=== PATIENT | female | born 1965 | race Asian ===

== ENCOUNTER 2023-08-13 17:33 | Outpatient (RCR) | payer OTHER, SELFPAY | END 2023-08-13 23:59 | disposition home or self-care (01) | LOC: CRHB 17:33 | PROVIDERS: ATTENDING PHYSICIAN Internal Medicine Cardiovascular Disease; FAMILY PHYSICIAN Family Medicine | DX: Z95.4 Presence of other heart-valve replacement (principal) | CPT/HCPCS: 93797; 93798 ==

== ENCOUNTER 2023-09-10 17:43 | Outpatient (RCR) | payer OTHER, SELFPAY | END 2023-09-10 23:59 | disposition home or self-care (01) | LOC: CRHB 17:43 | PROVIDERS: ATTENDING PHYSICIAN Internal Medicine Cardiovascular Disease; FAMILY PHYSICIAN Family Medicine | DX: Z95.3 Presence of xenogenic heart valve (principal) | CPT/HCPCS: 93798 ==

== ENCOUNTER 2023-10-08 18:01 | Outpatient (RCR) | payer OTHER, SELFPAY | END 2023-10-08 23:59 | disposition home or self-care (01) | LOC: CRHB 18:01 | PROVIDERS: ATTENDING PHYSICIAN Internal Medicine Cardiovascular Disease; FAMILY PHYSICIAN Family Medicine | DX: Z95.1 Presence of aortocoronary bypass graft (principal) | CPT/HCPCS: 93798 ==

== ENCOUNTER 2023-10-17 17:30 | Outpatient (RCR) | payer OTHER, SELFPAY | END 2023-10-17 23:59 | disposition home or self-care (01) | LOC: CRHB 17:30 | PROVIDERS: ATTENDING PHYSICIAN Internal Medicine Cardiovascular Disease; FAMILY PHYSICIAN Family Medicine | DX: I35.0 Nonrheumatic aortic (valve) stenosis (principal); Z95.4 Presence of other heart-valve replacement | CPT/HCPCS: 93797; 93798 ==

== ENCOUNTER → 2023-12-26 14:52 | Outpatient (REF) | payer OTHER, SELFPAY | LOC: RCS 14:52 | PROVIDERS: ATTENDING PHYSICIAN Internal Medicine Cardiovascular Disease; FAMILY PHYSICIAN Family Medicine | DX: Z95.2 Presence of prosthetic heart valve (principal) | CPT/HCPCS: 93306 ==

== ENCOUNTER → 2024-01-12 17:01 | Outpatient (REF) | payer OTHER, SELFPAY | LOC: RAD 17:01 | PROVIDERS: ATTENDING PHYSICIAN Internal Medicine Critical Care Medicine; FAMILY PHYSICIAN Family Medicine | DX: R91.8 Other nonspecific abnormal finding of lung field (principal); Z85.3 Personal history of malignant neoplasm of breast | CPT/HCPCS: 71250 ==

== ENCOUNTER → 2024-04-19 17:44 | Outpatient (REF) | payer OTHER, SELFPAY | LOC: WDC 17:44 | PROVIDERS: ATTENDING PHYSICIAN Family Medicine; FAMILY PHYSICIAN Obstetrics & Gynecology | DX: Z12.31 Encounter for screening mammogram for malignant neoplasm of breast (principal) | CPT/HCPCS: 77063; 77067 ==

== ENCOUNTER 2025-04-18 06:08 | Day surgery (SDC) | payer OTHER, SELFPAY ==
[2025-04-15 13:52] LABS: Hematocrit 40.8 % (37.0-47.0); Hemoglobin 13.8 g/dL (12.0-16.0); Mean Corp Hgb Conc. 33.8 g/dL (33.0-37.0); Mean Corpuscular Volume 92.3 fL (81.0-99.0); Platelet Count 329 10^3/uL (130-400); Red Cell Dist. Width 13.1 % (11.5-14.5)
[2025-04-15 14:00] LABS: INR 1.02; PT 13.7 Sec (11.4-14.6)
[2025-04-15 14:01] LABS: APTT 33.6 Sec (23.4-35.0)
--- NOTE | 2025-04-15 14:22 | PTCARENOTE ---
Abnormal EKG reviewed by Dr. Limon, no further action requested.
[2025-04-15 14:27] LABS: Blood Urea Nitrogen 21 mg/dl (7-17); Calcium 9.9 mg/dl (8.4-10.2); Carbon Dioxide 29 mmol/L (22-30); Chloride 101 mmol/L (98-107); Glucose 102 mg/dl (70-99); Potassium 4.4 mmol/L (3.5-5.1); Sodium 137 mmol/L (135-145); eGFR > 60.00
[2025-04-18] VITALS (7 sets, daily range): BP systolic 107–119; BP diastolic 39–69; BMI 25.3; BMI 25.1; BMI 24.5
--- NOTE | 2025-04-18 17:40 | W.PN.UPDATE ---
Update Note
Progress Note Update
Patient developed right-sided small PTX post-robotic bronchoscopy. I immediately saw the pt, and she denies SOB at rest, although says that when she walked to the bathroom she felt discomfort on the left-side of her chest. Pt placed onto NRB @
100% - repeat CXR ordered, and completed ~4 hours later showing stable R-sided PTX without enlargement. I saw the patient once again and explained that the risk of going home is low but not zero, and that she can only go home if she feels
comfortable and if she becomes symptomatic then she needs to return to the ER immediately. I reviewed the red flag symptoms to watch out for. I had discussed this same risk of going home with risk for PTRX enlargement and hospital admission to the
earlier. Pt feels comfortable going home - I will arrange for outpatient CXR and we will check on her tomorrow (04/19/2025) to assess her symptoms.
== END 2025-04-18 18:37 | disposition home or self-care (01) ==
LOC: GI 06:08
PROVIDERS: ATTENDING PHYSICIAN Internal Medicine Critical Care Medicine; FAMILY PHYSICIAN Family Medicine
DX: R91.1 Solitary pulmonary nodule (principal); R93.89 Abnormal findings on diagnostic imaging of other specified body structures; D14.31 Benign neoplasm of right bronchus and lung
CPT/HCPCS: 31629; 31623; 31624; 31628; 31627; 31654; 36415; 71045; 76000; 80048; 85027; 85610; 85730; 87015; 87070; 87102; 87116; 87205; 88112; 88173; 88305; 88333; 88341; 88342; 88360; 93005; 94640; C1887

== ENCOUNTER → 2025-04-19 13:09 | Outpatient (REF) | payer OTHER, SELFPAY | LOC: RAD 13:09 | PROVIDERS: ATTENDING PHYSICIAN Internal Medicine Critical Care Medicine; FAMILY PHYSICIAN Family Medicine | DX: J93.9 Pneumothorax, unspecified (principal) | CPT/HCPCS: 71046 ==

== ENCOUNTER → 2025-04-20 17:42 | Outpatient (REF) | payer OTHER, SELFPAY | LOC: WDC 17:42 | PROVIDERS: ATTENDING PHYSICIAN Obstetrics & Gynecology; FAMILY PHYSICIAN Family Medicine | DX: Z12.31 Encounter for screening mammogram for malignant neoplasm of breast (principal) | CPT/HCPCS: 77063; 77067 ==

== ENCOUNTER → 2025-04-22 08:07 | Outpatient (REF) | payer OTHER, SELFPAY | LOC: REG 08:07 | PROVIDERS: ATTENDING PHYSICIAN Internal Medicine Critical Care Medicine; FAMILY PHYSICIAN Family Medicine | DX: J93.9 Pneumothorax, unspecified (principal) | CPT/HCPCS: 71046 ==

== ENCOUNTER → 2025-04-26 16:49 | Outpatient (REF) | payer OTHER, SELFPAY | LOC: RAD 16:49 | PROVIDERS: ATTENDING PHYSICIAN Internal Medicine Critical Care Medicine; FAMILY PHYSICIAN Family Medicine | DX: J93.9 Pneumothorax, unspecified (principal) | CPT/HCPCS: 71046 ==

== ENCOUNTER → 2025-05-02 16:47 | Outpatient (REF) | payer OTHER, SELFPAY | LOC: RAD 16:47 | PROVIDERS: ATTENDING PHYSICIAN Internal Medicine Critical Care Medicine | DX: J93.9 Pneumothorax, unspecified (principal) | CPT/HCPCS: 71046 ==

== ENCOUNTER → 2025-05-06 10:22 | Outpatient (REF) | payer OTHER, SELFPAY | LOC: PET 10:22 | PROVIDERS: ATTENDING PHYSICIAN Internal Medicine Critical Care Medicine | DX: R91.1 Solitary pulmonary nodule (principal); R91.8 Other nonspecific abnormal finding of lung field | CPT/HCPCS: 78815; A9552 ==

== ENCOUNTER → 2025-05-16 07:09 | Outpatient (REF) | payer OTHER, SELFPAY ==
[2025-05-16] VITALS (9 sets, daily range): BP systolic 52–122; BP diastolic 65–92
== END ==
LOC: RADI 07:09
PROVIDERS: ATTENDING PHYSICIAN Internal Medicine Critical Care Medicine; FAMILY PHYSICIAN Family Medicine
DX: R91.1 Solitary pulmonary nodule (principal); Z53.8 Procedure and treatment not carried out for other reasons
CPT/HCPCS: 32408; 99152; 99153

== ENCOUNTER 2025-05-31 07:53 | Inpatient (IN) | payer OTHER, SELFPAY ==
[2025-05-26 08:33] VITALS: BMI 25.5
[2025-05-26 09:23] LABS: Hematocrit 39.8 % (37.0-47.0); Hemoglobin 13.5 g/dL (12.0-16.0); Mean Corp Hgb Conc. 33.9 g/dL (33.0-37.0); Mean Corpuscular Volume 92.3 fL (81.0-99.0); Nucleated Red Blood Cells % 0 %; Platelet Count 304 10^3/uL (130-400); Red Cell Dist. Width 13.2 % (11.5-14.5)
[2025-05-26 09:37] LABS: Urine Character Clear (Clear)
[2025-05-26 09:47] LABS: INR 0.95; PT 13.1 Sec (11.4-14.6)
--- NOTE | 2025-05-26 10:06 | CM ---
Met with Mrs. Bishop in [facility]. She states prior to admission she resides with her spouse in a one story home with one step. She states prior to admission she was independent with ambulation and adls. She states she does not have any DME in the
home. She states she a prescription plan and uses [facility]. She states her spouse will be home to assist in his care if needed. The discharge plan is to return home with her spouse and the Transitional Care Nurse when medically stable.
We reviewed pre-op and post-op routines. We reviewed the shower instructions. She has the soap, written instructions and the Thoracic (Lung) Surgery Educational Booklet. We reviewed restrictions including driving and lifting restrictions. We
also discussed a home visit by the Transitional Care Nurse. She is agreeable to a home visit. The plan is for Robotic Assisted RML Wedge Resection on Saturday, May 31, 2025.
[2025-05-26 10:11] LABS: Glycohemoglobin (HgbA1c) 6.0 % (4.0-5.9)
[2025-05-26 10:43] LABS: ALT (SGPT) 42 U/L (0-35); AST (SGOT) 38 U/L (14-36); Albumin 4.4 g/dl (3.5-5.0); Alkaline Phosphatase 72 U/L (38-126); Blood Urea Nitrogen 14 mg/dl (7-17); Calcium 9.3 mg/dl (8.4-10.2); Carbon Dioxide 27 mmol/L (22-30); Chloride 104 mmol/L (98-107); Estimated Creatinine Clearance 71 ml/min; Glucose 90 mg/dl (70-99); Potassium 4.3 mmol/L (3.5-5.1); Sodium 135 mmol/L (135-145); Total Protein 7.7 g/dl (6.3-8.2); eGFR > 60.00
[2025-05-26 10:58] LABS: Urine Squamous Cell >30 /LPF (Few)
[2025-05-26 11:01] LABS: Urine Red Blood Cell 0-2 /HPF (0-2)
[2025-05-26 11:03] LABS: Urine White Cell 30-40 /HPF (0-5)
[2025-05-31] VITALS (10 sets, daily range): BP systolic 100–122; BP diastolic 63–86; BMI 24.8
[2025-05-31 12:53] LABS: Urine Character Clear (Clear)
[2025-05-31 13:04] LABS: Urine Red Blood Cell 0-2 /HPF (0-2); Urine Squamous Cell 0-2 /LPF (Few); Urine White Cell 0-2 /HPF (0-5)
[2025-05-31] MEDS: ANCEF IV (13:10)
--- NOTE | 2025-05-31 14:14 | CM ---
Reviewed chart. Mrs. Bishop is in the operating room today. Prior to admission she resides with her spouse in a one story home with one step. Prior to admission she was independent with ambulation and adls. She does not have any DME in the
home. She has a prescription plan and uses [facility]. Her spouse will be home to assist in his care if needed. The discharge plan is to return home with her spouse and the Transitional Care Nurse when medically stable.
--- NOTE | 2025-05-31 15:24 | W.PN.CT.SURG ---
CT Surgery Operative Note
-
THORACIC SURGERY OPERATIVE REPORT
Preoperative Diagnosis: Pulmonary nodule of the RML concerning for malignancy
Postoperative Diagnosis: Same
Procedure(s) Performed:
1. Robotic assisted thoracic surgery
2. Right middle lobectomy
3. Limited lymph node dissection
4. Intercostal nerve block interspaces 4, 5, 6, 7
5. Modifier 22 for adhesiolysis due to previous cardiothoracic surgery
Date of Surgery: 05/31/25
Comorbidities:
1. Previous history of aortic valve stenosis, status post SAVR
2. Anxiety/depression
3. Pneumothorax
4. Hyperlipidemia
5. Pulmonary nodule concerning for malignancy
6. History of breast cancer status postmastectomy and radiation
Attending Surgeon: Tacos Trammell MD, MS
Assistants: Lia Rosado PA-C (present and necessary to nurse first assist, exchanging robotic instruments, retraction, suction, exposure, suture management, and wound closure under my direction), Joss Morrison MD (Did adhesiolysis robotically), Malu
MD Martin (performed the intercostal nerve block, portion of the pulmonary resection, robotic arm management, closure)
Anesthesiology: Floyd Limon MD and Amarilis Mitchell CRNA
Scrub and Circulating RNs: Manasa Ferrer, RN, Bjorn Chavez, RN, Esther Goodman, RN
Anesthesia: Dual Lumen GETA
EBL: 200 cc
Products: None
Indication(s) for Procedures: This is a 59-year-old female who presented with a growing nodule that had FDG avidity on PET CT scan concerning for malignancy. Given the location of the nodule it was difficult to access for biopsy and she was
referred for consideration of a wedge versus lobectomy.
Findings: There is some intraoperative adhesions between the right middle lobe towards the anterior chest wall as well as the right upper lobe towards the anterior lateral chest wall. Of note her tissue was relatively friable and gentle
manipulation resulted in some bleeding and oozing. The lesions were taken down and the right middle lobe nodule was identified. Given the size of the right middle lobe IntraOp decision was essentially to make a lobectomy and sent that off for
frozen section. Frozen section returned as carcinoma favoring primary lung however this remains indeterminate. She had a paucity of lymph nodes anything that we could see was biopsied and taken for permanent pathology. At the inclusion of the
case there was no significant air leak.
Specimen(s):
Station 9, x 2 nodes
Station 7, x 1 nodes
Right middle lobe lobe
Additional margin of scar tissue/adhesions to the chest wall from that nodule
Description of Procedure: The patient was taken to the operating room. Induction via general anesthesia with endotracheal intubation was performed and peripheral venous access and arterial monitoring were inserted. Their identity and procedure to be
performed were verified and they were positioned with the right side up on the operating table. The patient was then prepped and draped in a sterile fashion. A preoperative time-out was performed with all members of the team present. A Veress
needle was used to insufflate the chest after isolating the lung. An 8 mm port was placed in the midaxillary line at approximately the eighth intercostal space and confirmed to be intrathoracic without significant pulmonary injury. The chest was
surveyed for any evidence of metastatic disease. Patient tolerate insufflation without complication. 1 additional 12 mm trocars were placed on the medial side under camera guidance, a second 8 mm trocar towards the posterior axillary line and a
third 8 mm trocar was placed along the back. A 12 mm behavioral health assistant port was placed in the 11th intercostal space above the insertion of the diaphragm. An intercostal nerve block was performed at intercostal spaces 4 through 7.
The thoracic cavity was inspected for evidence of metastatic disease. None was observed. Given the dense adhesions of the right upper and right middle lobes to the chest wall, this was taken with the spatula cautery. Of note the adhesions were
really vascular so care was taken to perform electrocautery of the lung side as well as chest wall slide. The right middle lobe nodule was identified and given the size of the right middle lobe, IntraOp incision was to perform essentially a full
right middle lobectomy. This was done with 2 fires of green load staplers. 1 specimen was placed into a bag and extracted from the chest cavity was sent for frozen section with pathology. While this was occurring, chest port sites were checked
for hemostasis and hemostasis was obtained with electrocautery. Once the pathology returned as carcinoma we started with mobilization of the inferior pulmonary ligament. We worked our way clockwise dissecting out the hilum and harvest any lymph
nodes identified. The site of adhesion of the right middle lobe nodule to the anterior chest wall was also taken as an additional margin. CoSeal was used to reinforce the staple lines and raw surfaces. After confirming hemostasis, the lung was
fully inflated and all ports were removed. Incisions were closed in 3 layers including the fascia, dermal, and epidermis. Additional local anesthesia was injected into all incision sites. The skin wound was cleansed and sealed with Dermabond glue.
All instrument, sponge, and needle counts were confirmed to be correct x 2 at the end of the operation. The patient was transferred to the cardiac intensive care unit extubated in critical but stable condition.
I, Dr. Tacos Trammell, was present, scrubbed for, and performed all critical elements of this procedure.
Tacos Trammell MD, MS
Cardiothoracic Surgeon
[facility]
This operative dictation was created using the [employer] dictation system. Please excuse any grammatical, typographical, or 'sound alike' errors
[2025-05-31] MEDS: DILAUDID 0.25 MG IV (16:33)
[2025-05-31] MEDS: NEURONTIN PO (16:41)
[2025-05-31] MEDS: TYLENOL PO (16:41)
--- NOTE | 2025-05-31 17:18 | PTCARENOTE ---
Received Pt back from PACU team. AAO x 3, drowsy but appropriate. C./o Rt anterior chest /shoulder pain. SR on monitor 60's. Lt radial A line transducing. Lines leveled, recalibrated and flushed. 2 L NC 100%. RT posterior chest tube to water
seal. No crepitus or air leak noted. Abdomen wnl, denies nausea. Due to void. Pulses palpable. Plan discussed.
--- NOTE | 2025-05-31 17:44 | CON.PUL ---
Consultation
Consultation Request
Date/Time Consultation Requested: 05/31/2025
Date/Time Consultation Performed: 06/01/2025
Medical History
-
Chief Complaint: Lung nodule
History of Present Illness:
Patient is a very pleasant 59-year-old female with known history of breast cancer status postmastectomy as well as aortic valve replacement who was noted to incidentally have a lung nodule in the right middle lobe. Serial growth was noted and
patient subsequently had a PET scan which was positive with FDG uptake. Iron robotic bronchoscopy was attempted but diagnosis was not established. Subsequently an IR guided biopsy was considered but could not be done due to technical location of
the nodule. Patient subsequently was referred to CT surgery service. Patient on 05/31 had a right middle lobectomy along with limited lymph node dissection. Postprocedure patient was transferred to CVICU. Pulmonary consultation was requested for
further input.
Past medical history. Right-sided breast cancer s/p radiation and surgery. Aortic stenosis s/p aortic valve replacement, hyperlipidemia, IBS, anxiety/depression, history of pneumothorax status post AVR in 06/2023. History of eczema.
Surgery. Right breast mastectomy, tubal ligation, s/p AVR which required mini sternotomy.
Family history. No known history of lung cancer.
Social history. Former smoker, [id number] smoking history, quit in 2009.
Allergies / Home Medications
Allergies
Allergy/AdvReac Type Severity Reaction Status Date / Time
dog dander Allergy Hives Verified 05/25/25 12:13
egg Allergy Unknown Verified 05/25/25 12:13
grass pollen Allergy Itching Verified 05/25/25 12:13
Home Medications
�Medication �Instructions �Recorded �Confirmed �Last Taken �Type
lactobacillus comb no.10 20 1 cap PO DAILY Gastrointestinal 10/27/19 05/31/25 05/24/25 History
billion cell capsule (Probiotic) Issue
sertraline 100 mg tablet (Zoloft) 100 mg PO HS Mental Health/Anxiety 05/05/23 05/31/25 05/30/25 History
clobetasol 0.05 % topical cream 1 applic topical BID PRN eczema 05/19/23 05/31/25 05/30/25 History
cholecalciferol (vitamin D3) 125 125 mcg PO HERNÁNDEZ Supplement 04/14/25 05/31/25 05/22/25 History
mcg (5,000 unit) tablet (Vitamin
D3)
rosuvastatin 20 mg tablet 20 mg PO DAILY High Cholesterol 04/14/25 05/31/25 05/30/25 History
Cbd 1 dose PO PRN PRN Anxiety 05/25/25 05/31/25 01/11/25 History
metoprolol succinate 25 mg 25 mg PO DAILY Blood Pressure 05/31/25 05/31/25 05/30/25 History
tablet,extended release 24 hr
Review of Systems
-
Hematologic/Lymphatic: Other (All 14 systems reviewed and negative except as stated above in the history of present illness.)
Vitals / Labs / Diagnostic Testing
Vital Signs
Temp Pulse Resp BP Pulse Ox
97.6 F 66 16 104/63 100
05/31/25 17:03 05/31/25 17:00 05/31/25 17:03 05/31/25 16:30 05/31/25 17:11
Lab Data
05/26/25 08:44
05/26/25 08:44
Diagnostic Testing:
Physical Exam
-
HEENT: Normocephalic
Cardiovascular: S1/S2
Respiratory: Clear
GI: Soft and Non Distended
Neurology: Awake, Alert and Oriented
Skin: Warm
General: Comfortable
Assessment
-
59-year-old female with positive right middle lobe, s/p right middle lobectomy and limited lymph node dissection, POD # 1
#1. RML nodule.
- Patient noted to have PET positive right middle lobe nodule. Ion bronchoscopy attempted but nondiagnostic. CT guided biopsy could not be performed due to technical challenges.
- S/p RATS (robotic assisted thoracic surgery), right middle lobe lobectomy, limited lymph node dissection. Await final pathology
- Chest tube in place, follow-up chest x-ray without any pneumothorax. No airleak noted
- Chest tube clamped 06/01. Tolerating well.
#2. RUL Ground glass opacity
- No significant PET update noted
- Will continue ongoing surveillance with serial imaging with Dr. Malhotra at [facility] pulmonary clinic
#3. H/o Smoking
- Patient has 26-[id number] smoking history, quit in 2009
- No symptoms suggestive of COPD or emphysema.
Other medical diagnoses:
- History of aortic valve stenosis, s/p aortic valve replacement
- Anxiety/depression
- Hyperlipidemia
- History of breast cancer s/p mastectomy and radiation
Total time spent on this consultation/encounter __58__ minutes which includes review of history, physical exam, medications, laboratory data, personal review of imaging, extensive review of outpatient records, discussion with care team and
respiratory therapy.
Data:
CXR 05/2025: Decreased volume of the right hemithorax and right chest tube, stable.
No pneumothorax.
ION bronchoscopy and biopsy 04/2025: Non-diagnostic biopsy
PET-CT 04/2025: 1.3 cm solid pulmonary nodule in the right middle lobe is hypermetabolic and shows increased uptake on delayed imaging, considered suspicious for lung cancer.
The 1.1 cm groundglass pulmonary nodule in the right upper lobe is not significantly hypermetabolic.
ECHO 12/2023: Normal biventricular size and systolic function without regional wall motion
abnormality. Well seated #21 Weinstein Inspiris Resilia aortic valve replacement. The
peak/mean gradients across the valve are 34/17 mmHg.
Compared to previous echo, the aortic valve has been replaced.
LHC & RHC 04/2023: 1. Right dominant circulation with no coronary artery disease.
2. Normal filling pressures (PCWP = 8 mmHg at 69.0 kg).
3. Severe to critical aortic valve stenosis on echocardiogram.
[2025-05-31] MEDS: ANCEF 10 IV (17:45)
[2025-05-31] MEDS: DILAUDID 0.5 MG IV (18:14)
[2025-05-31] MEDS: SENOKOT 8.6 MG PO (20:05)
[2025-05-31] MEDS: LOPRESSOR 12.5 MG PO (20:05)
[2025-05-31] MEDS: ANCEF 5 IV (20:17)
[2025-05-31] MEDS: ROXICODONE 5 MG PO (20:17)
--- NOTE | 2025-05-31 20:29 | PTCARENOTE ---
Assumed care of pt at 1900. Pt in bed talking with family at bedside during walking rounds. Vitals stable. Assisted pt into bathroom at aprox 2019 and was able to void with a slight burning sensation post pack catheter removal. 2L of O2 removed
and remains 97 on RA. SR on monitor. Chest tube to water seal, dressing CDI. Pt given oxycodone for pain of 6/10 to right anterior incision. Instructed to ring for assistance needed.
[2025-05-31] MEDS: NEURONTIN 100 MG PO (22:16)
[2025-05-31] MEDS: TYLENOL 1000 MG PO (22:16)
[2025-05-31] MEDS: ZOLOFT 100 MG PO (22:16)
--- NOTE | 2025-05-31 23:00 | PTCARENOTE ---
Received pt from previous RN. Systems reviewed, see flowsheets. Pt lying comfortably in bed with no new complaints at this time. Chest tube to water seal, WNL. No crepitus or air leak. Volume at 90mL sofy. Dressing CDI. SB in the 50s on heart
monitor. SaO2 96% on RA. L hand PIV and LAC PIV capped. Will continue to monitor.
[2025-06-01] VITALS (8 sets, daily range): BP systolic 92–119; BP diastolic 56–73; BMI 25.4
[2025-06-01] MEDS: DILAUDID 0.25 MG IV (00:05)
--- NOTE | 2025-06-01 02:58 | DOWNTIME ---
There was a [employer] Client Leadership Development Manager Downtime on 06/01/2025 from 0100 to 06/01/2025 at 0255. Downtime documentation of patient's care, including medication administrations, has been reconciled in the electronic record per guidelines. Refer to the
patient's paper chart under the miscellaneous tab to see printed paper medication records and downtime forms.
[2025-06-01] MEDS: ANCEF 5 IV ×2 (03:47→11:09)
[2025-06-01 03:48] LABS: Hematocrit 36.7 % (37.0-47.0); Hemoglobin 12.4 g/dL (12.0-16.0); Mean Corp Hgb Conc. 33.8 g/dL (33.0-37.0); Mean Corpuscular Volume 92.2 fL (81.0-99.0); Platelet Count 270 10^3/uL (130-400); Red Cell Dist. Width 13.2 % (11.5-14.5)
[2025-06-01] MEDS: ROXICODONE 5 MG PO (03:54)
[2025-06-01 04:14] LABS: Blood Urea Nitrogen 10 mg/dl (7-17); Calcium 8.9 mg/dl (8.4-10.2); Carbon Dioxide 27 mmol/L (22-30); Chloride 103 mmol/L (98-107); Estimated Creatinine Clearance 82 ml/min; Glucose 130 mg/dl (70-99); Magnesium 2.2 mg/dl (1.6-2.3); Potassium 4.8 mmol/L (3.5-5.1); Sodium 133 mmol/L (135-145); eGFR > 60.00
--- NOTE | 2025-06-01 05:46 | W.PN.CT ---
Today's Communication / Plan
-
-pod #1
-no issues overnight
-R CT put out 86/150, on water seal overnight. No air leak with breathing or cough.
-CXR is stable, no ptx.
-per AT, clamped CT at 6 am. Ordered CXR for 10 am
Assessment / Plan
-
- Pulmonary nodule of the RML concerning for malignancy- s/p Robotic assisted thoracic surgery; Right middle lobectomy; Limited lymph node dissection by Dr. Trammell on 05/31/25, pod #1
- Frozen section positive for malignancy, likely primary lung. Full pathology is pending
- Previous history of aortic valve stenosis, status post SAVR (Inspiris) in [address] Morrison
- Anxiety/depression
- Pneumothorax
- Hyperlipidemia
- Pulmonary nodule concerning for malignancy
- History of breast cancer, status postmastectomy and radiation
Discussed patient care with: Nursing and Care Team
Subjective
-
Date of Service: June 01, 2025
Objective Data
-
Lab Results
06/01/25 03:37
06/01/25 03:37
PT 13.1 Sec (11.4-14.6) 05/26/25 08:44
INR 0.95 05/26/25 08:44
Vital Signs
Vital Signs
Temp Pulse Resp BP Pulse Ox
97.7 F 56 10 119/69 99
06/01/25 03:58 06/01/25 04:00 06/01/25 04:00 06/01/25 04:00 06/01/25 04:00
CT Intake/Output/Weight
05/31/25 05/31/25 06/01/25
06:59 18:59 06:59
Intake Total 610 / 1210 600 / 1210
Output Total 65 / 151 86 / 151
Balance 545 / 1059 514 / 1059
SaO2: 99
Physical Exam
-
General: Awake and AOx3
Cardiovascular: Regular rate & rhythm, Murmur (2/6 systolic) and No Rub
Respiratory: Clear and Decreased Breath Sounds
Incision: Clean, Dry and Dressing Intact
Extremities: No Edema
Abdomen: soft, nontender, nondistended
Data Reviewed
-
Lab Results: Results Reviewed
Medications: Active Meds Reviewed
Chest X-Ray: Report Reviewed and Image Reviewed
ECG: Report Reviewed and Image Reviewed
[2025-06-01] MEDS: TYLENOL 1000 MG PO ×2 (05:53→13:52)
--- NOTE | 2025-06-01 07:30 | PTCARENOTE ---
Assumed care of pt from night RN. Ambrose3. SB on tele, HRs 50s. VSS. CT remains clamped at this time. Repeat CXR ordered for 1000. No crepitus noted. Assessment documented. Plan for CT removal if CXR remains unchanged.
[2025-06-01] MEDS: CRESTOR 20 MG PO (08:38)
[2025-06-01] MEDS: SENOKOT 8.6 MG PO (08:38)
[2025-06-01] MEDS: NEURONTIN 100 MG PO ×2 (08:38→15:48)
[2025-06-01] MEDS: LOPRESSOR 12.5 MG PO (08:38)
[2025-06-01] MEDS: LIDOCAINE 4% PATCH 1 PATCH TOPICAL (08:39)
--- NOTE | 2025-06-01 10:44 | PTCARENOTE ---
CXR unchanged. CT removed at bedside buy CT surgery night shift supervisor. Pt tolerated. Assessment otherwise unchanged. Plan for d/c home later today.
[2025-06-01] MEDS: TORADOL 15 MG IV (12:22)
--- NOTE | 2025-06-01 15:08 | CM ---
Chart reviewed. Patient is independent of ADLS, lives with her in a 1 STH, 1 WILDA, 0 DME. Plan is for the patient to return home with CT Transitional RN. CM to follow
--- NOTE | 2025-06-01 15:32 | W.DCSUMMARY ---
Discharge Summary
Discharge Data
Date of Admission: 05/31/25
Date of Discharge: 06/01/25
Total time spent discharging patient (in min): 40
-
Pending Results: No
Hospital Course
Primary care physician:
Dr. Preciado
Outpatient stain wiper:
Dr. Malhotra
Inpatient consultants:
n/a
Procedures:
1. Robotic assisted thoracic surgery, Right middle lobectomy, Limited lymph node dissection
Primary Diagnosis:
1. Pulmonary nodule of the RML concerning for malignancy
Secondary Diagnoses:
1. Previous history of aortic valve stenosis, status post SAVR
2. Anxiety/depression
3. Pneumothorax
4. Hyperlipidemia
5. Pulmonary nodule concerning for malignancy
6. History of breast cancer status postmastectomy and radiation
HPI: 59-year-old female who presented with a growing nodule that had FDG avidity on PET CT scan concerning for malignancy. Therefpre, she presented on 05/31 for a lobectomy and lymph node dissection with Dr. Trammell.
Hospital course: Patient was electively admitted on 05/31 for a RATS RML lobectomy and lymph node dissection. Post procedure, patient was extubated and sent to PACU. CXR was preformed which did not show a pneumothorax and chest tube placed on h20
seal. On 06/01 POD #1, patient continued to do well. Morning CXR did not show a pneumothorax so chest tube was clamped. In the afternoon, CXR was still stable and chest tube was removed without issue and a stitch was tied down after removal.
Patient's blood pressure initially was in the 90s but patient was asymptomatic and she ambulated well. She was deemed stable for discharge with a short course of lasix and will be seen in the office on 06/13 with a repeat CXR.
Home medication changes:
see below
Discharge Plan
-
Patient Disposition: Home (Routine Discharge)
Discharge Diagnosis/Procedures: Robotic assisted thoracic surgery
Right middle lobectomy
Limited lymph node dissection
Condition: Good
Diet: Regular
Activity: No strenuous activity
Driving Restrictions: No driving for 2 weeks
Bathing Restrictions: OK to Shower
Others Tests: CXR on 06/13 PRIOR to visit with Dr. Trammell
Other Services: Cardiac Rehab
Wound Care: keep dressing on for 24 hours
Specialty Instructions: Weigh Daily- Call MD for wt gain/loss 3 lbs overnight/5 lbs in 1 week
Referrals:
CT Transitional Care Nurse [Outside]
Referral Note: The Cardiothoracic Transitional Care Nurse will call you to set up a visit in 1-2 days.
Segundo Malhotra MD [Active, Pulmonary Medicine] - in six weeks
Hetal Preciado MD [Family Provider, Family Practice]
Tacos Trammell MD [Active, Cardiac Surgery] - 06/13/25 2:15 pm
Prescriptions:
New
cyclobenzaprine 10 mg Tablet
5 mg PO Q8HPRN PRN (Reason: muscle spasm) Qty: 30 0RF
acetaminophen 325 mg Tablet
650 mg PO Q4HPRN PRN (Reason: mild pain,headache,temp >101F ) Qty: 0 0RF
gabapentin 100 mg Capsule
100 mg PO TID Qty: 90 0RF
oxycodone 5 mg Tablet
2.5 mg PO Q6HPRN PRN (Reason: mild pain) Qty: 20 0RF
furosemide [Lasix] 20 mg tablet
20 mg PO DAILY Qty: 7 0RF
Rx Instructions:
Take daily for 7 days, then stop
potassium chloride 10 mEq capsule, extended release
10 meq PO DAILY Qty: 7 0RF
Continued
Probiotic 1 EACH capsule
1 cap PO DAILY
sertraline [Zoloft] 100 mg Tablet
100 mg PO HS
clobetasol 0.05 % Cream
1 applic TOPICAL BID PRN (Reason: eczema)
cholecalciferol (vitamin D3) [Vitamin D3] 125 mcg (5,000 unit) Tablet
125 mcg PO HERNÁNDEZ
rosuvastatin 20 mg Tablet
20 mg PO DAILY
Cbd
1 dose PO PRN PRN (Reason: Anxiety)
metoprolol succinate 25 mg tablet extended release 24 hr
25 mg PO DAILY
Discharge Orders:
Discharge Patient (As Directed); Ordered 06/01/25
Ordered By: Crystal Haskins
Care Plan Goals
Care Plan Goals:
Problem: Readiness for enhanced knowledge related to diagnosis and treatment plan
Goal: Understand your diagnosis and treatment plan needs, including medications if applicable.
Instructions: Know your diagnosis, underlying causes and treatment plan options, including medications if applicable. Consult with your health care team to learn about your diagnosis and treatment plan, including medications if applicable.
Discharge Date and Time
Print Language: PARAGUAYAN
== END 2025-06-01 16:38 | disposition home or self-care (01) | DRG 165 ==
LOC: CVICU 07:53
PROVIDERS: ADMITTING PHYSICIAN Thoracic Surgery (Cardiothoracic Vascular Surgery); FAMILY PHYSICIAN Family Medicine; OTHER PHYSICIAN Internal Medicine
PROC: 0BNC4ZZ Release Right Upper Lung Lobe, Percutaneous Endoscopic Approach (ICD-10-PCS; 2025-05-31)
PROC: 07B74ZZ Excision of Thorax Lymphatic, Percutaneous Endoscopic Approach (ICD-10-PCS; 2025-05-31)
PROC: 0BTD4ZZ Resection of Right Middle Lung Lobe, Percutaneous Endoscopic Approach (ICD-10-PCS; 2025-05-31)
PROC: 0BND4ZZ Release Right Middle Lung Lobe, Percutaneous Endoscopic Approach (ICD-10-PCS; 2025-05-31)
DX: C34.91 Malignant neoplasm of unspecified part of right bronchus or lung (principal); F32.A Depression, unspecified; F41.9 Anxiety disorder, unspecified; E78.00 Pure hypercholesterolemia, unspecified; K66.0 Peritoneal adhesions (postprocedural) (postinfection); L30.9 Dermatitis, unspecified; Z85.3 Personal history of malignant neoplasm of breast; Z90.11 Acquired absence of right breast and nipple; Z92.3 Personal history of irradiation; Z86.79 Personal history of other diseases of the circulatory system; Z95.2 Presence of prosthetic heart valve; Z87.891 Personal history of nicotine dependence; Z91.0120 Allergy to eggs, unspecified
CPT/HCPCS: 36415; 71045; 80048; 80053; 81003; 81015; 81459; 82248; 83036; 83735; 85025; 85027; 85610; 86850; 86900; 86901; 87070; 87086; 88305; 88309; 88313; 88331; 88342; 93005; 94010

== ENCOUNTER 2025-06-06 15:03 | Observation (INO) | payer OTHER, SELFPAY ==
[2025-06-06] VITALS (10 sets, daily range): BP systolic 78–133; BP diastolic 60–87; BMI 26.3
[2025-06-06 12:21] LABS: Hematocrit 37.4 % (37.0-47.0); Hemoglobin 12.8 g/dL (12.0-16.0); Mean Corp Hgb Conc. 34.2 g/dL (33.0-37.0); Mean Corpuscular Volume 91.0 fL (81.0-99.0); Nucleated Red Blood Cells % 0 %; Platelet Count 362 10^3/uL (130-400); Red Cell Dist. Width 13.2 % (11.5-14.5)
[2025-06-06 12:38] LABS: COVID-19 Antigen Negative (Negative)
[2025-06-06 13:05] LABS: ALT (SGPT) 23 U/L (0-35); AST (SGOT) 20 U/L (14-36); Albumin 3.7 g/dl (3.5-5.0); Alkaline Phosphatase 68 U/L (38-126); Blood Urea Nitrogen 12 mg/dl (7-17); Calcium 9.0 mg/dl (8.4-10.2); Carbon Dioxide 29 mmol/L (22-30); Chloride 103 mmol/L (98-107); Glucose 99 mg/dl (70-99); Potassium 4.2 mmol/L (3.5-5.1); Sodium 136 mmol/L (135-145); Total Protein 7.0 g/dl (6.3-8.2); eGFR > 60.00
--- NOTE | 2025-06-06 13:10 | ED.GENMED ---
History of Present Illness
<Brenda Santos PA-C - Last Filed: 06/06/25 14:51>
General
Chief Complaint: Post Operative Problem(s)
Time Seen by Provider: 06/06/25 11:13
History of Present Illness
History of Present Illness:
see MDM
Phy Exam
<Brenda Santos PA-C - Last Filed: 06/06/25 14:51>
Physical Exam
Physical Exam:
see MDM
Course
<Brenda Santos PA-C - Last Filed: 06/06/25 14:51>
Orders/Labs/Results
Orders:
Orders
06/06/25 11:23
Electrocardiogram (*1) Urgent
Reason for Study: Shortness of Breath
EKG- Treatment ONCE
CR Chest - 2 Views Urgent
Comment:
Reason For Exam: RML resection 6 days ago, sob, cough
06/06/25 11:57
COVID-19 Antigen Urgent
Source: Nasal Swab
Complete Blood Count/With Diff Urgent
Comprehensive Metabolic Panel Urgent
Influenza A+B Rapid Molecular Urgent
JONA Source: Nasal Swab
Specimen Description:
06/06/25 12:42
CT Chest PE Study Urgent
Comment: breast ca; dr arreaga wants PE study
Reason For Exam: s/p RML resection, now sob, pain, opacity
06/06/25 14:02
Piperacillin/Tazo 3.375 Gram [Zosyn] 3.375 gram in 50 ml IV NOW
06/06/25 14:37
Consult Interventional Radiology [IRAD CONSULT] Urgent
Consulting Provider: Brodie Stone
Was physician already notified: Yes
Procedure being ordered, including laterality if applicable: R sided pigtail for pleurla effusion
Acknowledgement that appropriate orders are entered: Yes
06/06/25 14:39
Admit/Transfer Patient As Directed
Co-Sign Provider:
Level of Care: Observation services
Assign to:: IVU
Physician / Group: Trammell
Diagnosis: Pleural effusion
Reason for Hospitalization: pigtail placement
PRN Pain Medication Management As Directed
May give lesser potent ordered pain med per pt: Yes
preference::
Protocol:: Medication orders for pain may be administered in a
manner that supports deferring to patient preference
when the pt is:
- Requesting an ordered lesser potent pain medication.
Least to most potent pain medications are defined
as: acetaminophen < NSAID < tramadol < opioids
(morphine, oxycodone, hydromorphone).
- Requesting a lesser dose of the same medication IF
ORDERED.
- Requesting a less intrusive route of administration
if both routes are prescribed by the provider (PO <
IV).
06/06/25 14:42
Code Status As Directed
Resuscitation Status: Full Code
Abnormal Lab Results
06/06/25
11:57
WBC 13.6 H 10^3/uL
(4.8-10.8)
RBC 4.11 L 10^6/uL
(4.20-5.40)
MCH 31.1 H pg
(27.0-31.0)
Absolute Neuts (auto) 8.3 H 10^3/uL
(1.4-6.5)
Absolute Monos (auto) 1.9 H 10^3/uL
(0.1-0.6)
Absolute Eos (auto) 1.2 H 10^3/uL
(0-0.7)
Lymphocytes % 15.2 L %
(20.5-51.1)
Monocytes % 13.9 H %
(1.7-9.3)
Eosinophils % 8.7 H %
(0-6)
Creatinine 0.5 L mg/dL
(0.6-1.0)
06/06/25 11:57
06/06/25 11:57
Vital Signs
Initial and Last Documented VS:
Initial Vital Signs
Temp Pulse Resp BP Pulse Ox
36.8 C 84 18 121/78 96
06/06/25 10:25 06/06/25 10:25 06/06/25 10:25 06/06/25 10:25 06/06/25 10:25
Last Documented Vital Signs
Temp Pulse Resp BP Pulse Ox
36.8 C 67 20 99/74 97
06/06/25 10:25 06/06/25 12:15 06/06/25 12:15 06/06/25 12:15 06/06/25 13:12
<Marcelino Carmona MD - Last Filed: 06/06/25 14:41>
Orders/Labs/Results
Orders:
Orders
06/06/25 11:23
Electrocardiogram (*1) Urgent
Reason for Study: Shortness of Breath
EKG- Treatment ONCE
CR Chest - 2 Views Urgent
Comment:
Reason For Exam: RML resection 6 days ago, sob, cough
06/06/25 11:57
COVID-19 Antigen Urgent
Source: Nasal Swab
Complete Blood Count/With Diff Urgent
Comprehensive Metabolic Panel Urgent
Influenza A+B Rapid Molecular Urgent
JONA Source: Nasal Swab
Specimen Description:
06/06/25 12:42
CT Chest PE Study Urgent
Comment: breast ca; dr arreaga wants PE study
Reason For Exam: s/p RML resection, now sob, pain, opacity
06/06/25 14:02
Piperacillin/Tazo 3.375 Gram [Zosyn] 3.375 gram in 50 ml IV NOW
06/06/25 14:37
Consult Interventional Radiology [IRAD CONSULT] Urgent
Consulting Provider: Brodie Stone
Was physician already notified: Yes
Procedure being ordered, including laterality if applicable: R sided pigtail for pleurla effusion
Acknowledgement that appropriate orders are entered: Yes
06/06/25 14:39
Admit/Transfer Patient As Directed
Co-Sign Provider:
Level of Care: Observation services
Assign to:: IVU
Physician / Group: Trammell
Diagnosis: Pleural effusion
Reason for Hospitalization: pigtail placement
PRN Pain Medication Management As Directed
May give lesser potent ordered pain med per pt: Yes
preference::
Protocol:: Medication orders for pain may be administered in a
manner that supports deferring to patient preference
when the pt is:
- Requesting an ordered lesser potent pain medication.
Least to most potent pain medications are defined
as: acetaminophen < NSAID < tramadol < opioids
(morphine, oxycodone, hydromorphone).
- Requesting a lesser dose of the same medication IF
ORDERED.
- Requesting a less intrusive route of administration
if both routes are prescribed by the provider (PO <
IV).
06/06/25 14:42
Code Status As Directed
Resuscitation Status: Full Code
Abnormal Lab Results
06/06/25
11:57
WBC 13.6 H 10^3/uL
(4.8-10.8)
RBC 4.11 L 10^6/uL
(4.20-5.40)
MCH 31.1 H pg
(27.0-31.0)
Absolute Neuts (auto) 8.3 H 10^3/uL
(1.4-6.5)
Absolute Monos (auto) 1.9 H 10^3/uL
(0.1-0.6)
Absolute Eos (auto) 1.2 H 10^3/uL
(0-0.7)
Lymphocytes % 15.2 L %
(20.5-51.1)
Monocytes % 13.9 H %
(1.7-9.3)
Eosinophils % 8.7 H %
(0-6)
Creatinine 0.5 L mg/dL
(0.6-1.0)
06/06/25 11:57
06/06/25 11:57
Vital Signs
Initial and Last Documented VS:
Initial Vital Signs
Temp Pulse Resp BP Pulse Ox
36.8 C 84 18 121/78 96
06/06/25 10:25 06/06/25 10:25 06/06/25 10:25 06/06/25 10:25 06/06/25 10:25
Last Documented Vital Signs
Temp Pulse Resp BP Pulse Ox
36.8 C 67 20 99/74 97
06/06/25 10:25 06/06/25 12:15 06/06/25 12:15 06/06/25 12:15 06/06/25 13:12
[place]íalt;Brenda Santos PA-C - Last Filed: 06/06/25 14:51>
MDM/Problems Addressed
Differential Diagnosis Includes:
see MDM
MDM/Problems Addressed:
Note:
CHIEF COMPLAINT(S)
Shortness of breath following a recent lobectomy.
HISTORY OF PRESENT ILLNESS
The patient 59 y/o female, h/o previous R breast ca, htn, hld, AVR, lung mass recently underwent a lobectomy on 05/31 due to a small mass suspected to be lung cancer. She reports not feeling well post-surgery. Since the procedure, she has
experienced shortness of breath, which became more pronounced today. The patient denies fever but feels generally run down. She also reports that taking deep breaths is painful and finds it difficult to cough due to the pain. There has been no
coughing up of blood or other symptoms such as diarrhea, sore throat, or headaches. The patients past medical history is significant for lung cancer, and the lesion was described as exceptionally small. No pathology results are available yet, and
they are expected by tomorrow.
she feels like she has crackles in her lugns
she feels fatigued.
called dr trammell and was told to come to the ED
PAST MEDICAL AND SURGICAL HISTORY
- Lung cancer diagnosis with recent lobectomy.
- History of breast cancer, treated with lumpectomy and radiation approximately ten years ago.
- Heart valve replacement (aortic valve) about two years ago.
SOCIAL HISTORY
The patient has a history of smoking. Current smoking status is not explicitly detailed but inferred to be in the past.
REVIEW OF SYSTEMS
- Respiratory: Shortness of breath that has worsened since surgery.
- General: Feels run down, with no fever.
- Pain: Pain with deep breathing.
- Gastrointestinal: Denies diarrhea.
- Ear, Nose, and Tongue: Denies sore throat and headaches.
PHYSICAL EXAM
GENERAL: Alert , in no apparent distress
EYE: pupils equal and reactive
NECK: Supple
ENT: o/p clr, mmm.
CARDIAC: Regular rate and rhythm .
lungs: diminished, crackles R base; no acute respiratory distress, no wheezes/rales/rhonchi
coughs with speaking; spastic
ABDOMEN: Soft, without focal tenderness, no r/g, no cvat, normal bowel sounds
NEUROLOGICAL: Alert and oriented, no focal neuro deficits
SKIN: Warm and dry, skin intact.
MUSCULOSKELETAL: No edema, well perfused. neg my's sign
PSYCH: Normal and appropriate interaction.
- Nursing notes reviewed and vital signs reviewed.
PROBLEM LIST
Acute Problems:
- Post-surgical shortness of breath
- Pain with deep breathing
Chronic Problems:
- Lung cancer
- History of breast cancer
- Aortic valve replacement
PLAN
- Initiate an X-ray to assess current status post-lobectomy.
- Consider a further computed tomography scan for detailed imaging.
- Swab for influenza and COVID-19 testing.
- Obtain blood work for further evaluation.
- Offer pain medication through intravenous administration if needed.
DIFFERENTIAL DIAGNOSIS
The Differential Diagnosis includes, in no particular order and is not limited to:
1. Postoperative atelectasis
2. Pulmonary embolism
3. Pneumonia
4. Pleural effusion
5. Infection at surgical site
6. Anemia
7. Heart failure
8. COPD exacerbation
9. Lung abscess
10. Acute respiratory distress syndrome (ARDS)
CARE-UPDATE
06/06/25 - 12:23
Patient x-ray reveals presence of fluid on the right side, possibly indicative of infection or blood. No evidence of a punctured lung observed. Dr. Trammell recommends reviewing blood work results to aid further diagnosis and is considering a CT scan
for more detailed imaging. Patient denies need for pain management at present.
06/06/[address] shows a loculated fluid collection pleural effusion, no hemorrhage. Discussed with Dr. Trammell who accepted her under his service and requested that I place an IR consult for pigtail
<Brenda Santos PA-C - Last Filed: 06/06/25 14:51>
*Pulse Oximetry
SaO2: 97
Oxygen Mode of Delivery: Room air
Patient hypoxic: no (96)
*Critical Care Note
Total Time (30-74mins, 75-104mins- exclusive of procedures): Not Applicable
ED Attending Note
<Brenda Santos PA-C - Last Filed: 06/06/25 14:51>
-
Portions of this chart may have been created with voice recognition software.� Occasional wrong word or��sound alike� substitutions may have occurred due to the inherent limitations of voice recognition software.
<Marcelino Carmona MD - Last Filed: 06/06/25 14:41>
ED Attending Note
Patient seen and examined by attending physician: Yes
ED Attending Note:
Patient status post right lung lobectomy secondary to malignancy 6 days ago, presents to ED secondary to persistent chest wall pain, along with worsening shortness of breath and hoarse voice, especially noted upon waking up this morning. Patient
also reports hearing 'crackles' in her chest this morning. Denies fever or chills. Denies nausea or vomiting. Denies new trauma. Denies back pain. Denies leg pain or swelling. Patient has been utilizing incentive spirometer upon discharge.
Physical Exam
General: mild distress, not acutely ill. afebrile
Head: nc/at. eomi
Neck: supple. no meningeal signs.
Heart: s1/s2 regular rate and rhythm
Lungs: mild respiratory distress. diminished breath sounds bilaterally.
Abdomen: normal bowel sounds. not tender.
Neuro: alert and oriented x 3. no focal neurological deficits
Skin: no rash
Psychiatric: well kept. interactive and cooperative
Extremities: no edema. no calf tenderness.
Awaiting CT PE study. Will discuss with CT surgery afterwards.
CT PE study reviewed and discussed with patient and Dr. Trammell, CT surgery. Patient will be admitted under CT surgery service for further evaluation and treatment. IRAD consulted for potential pigtail insertion for drainage, as recommended by
Trammell.
Discharge Plan
Departure
Patient Disposition: Admit
Date of Disposition: 06/06/25
Time of Disposition: 14:39
Admit to: Med/Surg
Admit to doctor: trammell
Presentation/result/management discussed w/ accepting MD/DO: trammell
Condition: Fair
Covid-19: Negative COVID-19
Discharge Problem:
Loculated pleural effusion
Prescriptions:
No Action
Probiotic 1 EACH capsule
1 cap PO DAILY
sertraline [Zoloft] 100 mg Tablet
100 mg PO HS
clobetasol 0.05 % Cream
1 applic TOPICAL BID PRN (Reason: eczema)
cholecalciferol (vitamin D3) [Vitamin D3] 125 mcg (5,000 unit) Tablet
125 mcg PO HERNÁNDEZ
rosuvastatin 20 mg Tablet
20 mg PO DAILY
Cbd
1 dose PO PRN PRN (Reason: Anxiety)
metoprolol succinate 25 mg tablet extended release 24 hr
25 mg PO DAILY
cyclobenzaprine 10 mg Tablet
5 mg PO Q8HPRN PRN (Reason: muscle spasm) Qty: 30 0RF
acetaminophen 325 mg Tablet
650 mg PO Q4HPRN PRN (Reason: mild pain,headache,temp >101F ) Qty: 0 0RF
gabapentin 100 mg Capsule
100 mg PO TID Qty: 90 0RF
oxycodone 5 mg Tablet
2.5 mg PO Q6HPRN PRN (Reason: mild pain) Qty: 20 0RF
furosemide [Lasix] 20 mg tablet
20 mg PO DAILY Qty: 7 0RF
Rx Instructions:
Take daily for 7 days, then stop
potassium chloride 10 mEq capsule, extended release
10 meq PO DAILY Qty: 7 0RF
Referrals:
Hetal Preciado MD [Family Provider, Family Practice]
Interventions
Interventions:
*General Assessment Last Done: 06/06/25 11:23
*Neglect/Abuse Screening Last Done: 06/06/25 10:25
ED-Skin Assessment Last Done: 06/06/25 11:23
Discharge Date and Time
Print Language: SYRIAC
[2025-06-06] MEDS: ZOSYN 50 IV (14:24)
--- NOTE | 2025-06-06 16:54 | HPS.HSE ---
Family Physician
-
Family Physician: Hetal Preciado
Chief Complaint
-
SOB
History of Present Illness
59-year-old female with past medical history significant for right breast cancer, HTN, HLD, SAVR, and lobectomy by Dr. Trammell on 05/31 presents to [facility] ER with complaints of shortness of breath. She states that two days ago she went out grocery
shopping for [employer] when a cough began. The cough and SOB worsen which prompted her ER visit. She was recent right middle lobectomy and lymph node dissection by Dr. Trammell on 05/31/2025. She was discharged home after a uneventful stay with oral
Lasix. In the ER she was found to have a pleural effusion and IR was consulted for pigtail placement.
Medical History
Past Medical History
Past Medical History: Reports Other
Additional Past Medical History:
1. Previous history of aortic valve stenosis, status post SAVR
2. Anxiety/depression
3. Pneumothorax
4. Hyperlipidemia
5. Pulmonary nodule concerning for malignancy
6. History of breast cancer status postmastectomy and radiation
Past Surgical History: Reports Cardiac
Additional Past Surgical History:
Right middle lobectomy
Surgical AVR
Social History
Tobacco: Former Smoker
Alcohol: Occasional
Drug: None
Personal:
Living: With Family
Employment: Employed
Family History
Family History: Not pertinent
Allergies / Home Medications
Allergies reflects when Allergies were last updated in [employer].
Home Medications with original date entered in [employer]
Allergy/Medication List:
Home Medications
�Medication �Instructions �Recorded
sertraline 100 mg tablet (Zoloft) 100 mg PO HS Mental Health/Anxiety 05/05/23
clobetasol 0.05 % topical cream 1 applic topical BID PRN 05/19/23
eczema-ankles
rosuvastatin 20 mg tablet 20 mg PO HS High Cholesterol 04/14/25
Cbd 1 dose sublingual DAILYPRN PRN 05/25/25
severe Anxiety
metoprolol succinate 25 mg 25 mg PO DAILY Blood Pressure 05/31/25
tablet,extended release 24 hr
acetaminophen 325 mg tablet 650 mg (2 x 325 mg) PO Q4HPRN PRN 06/01/25
mild pain,headache,temp >101F #0
tabs
cyclobenzaprine 10 mg tablet 5 mg (1/2 x 10 mg) PO Q8HPRN PRN 06/01/25
muscle spasm #30 tabs
furosemide 20 mg tablet (Lasix) 20 mg PO DAILY Fluid 06/01/25
retention/Swelling #7 tabs
gabapentin 100 mg capsule 100 mg PO TID Pain #90 caps 06/01/25
oxycodone 5 mg tablet 2.5 mg (1/2 x 5 mg) PO Q6HPRN PRN 06/01/25
mild pain #20 tabs
potassium chloride 10 mEq 10 meq PO DAILY Electrolyte 06/01/25
capsule,extended release Repletion #7 caps
ergocalciferol (vitamin D2) 1,250 1,250 mcg PO HERNÁNDEZ@0800 Supplement 06/06/25
mcg (50,000 unit) capsule
Allergies
Allergy/AdvReac Type Severity Reaction Status Date / Time
dog dander Allergy Hives Verified 06/06/25 10:25
egg Allergy Unknown Verified 06/06/25 10:25
grass pollen Allergy Itching Verified 06/06/25 10:25
Review of Systems
-
History Source: Patient
Constitutional: Reports No Symptoms
EENT: Reports No Symptoms
Respiratory: Reports Cough and Trouble Breathing
Cardiac: Reports No Symptoms
Abdomen/GI: Reports No Symptoms
: Reports No Symptoms
Musculoskeletal: Reports No Symptoms
Skin: Reports No Symptoms
Neurological: Reports No Symptoms
Endocrine: Reports No Symptoms
Hematologic/Lymphatic: Reports No Symptoms
Psych: Reports No Symptoms
Physical Exam
Vital Signs
Vital Signs
Temp Pulse Resp BP Pulse Ox
98.2 F 78 18 124/83 99
06/06/25 16:00 06/06/25 16:00 06/06/25 16:00 06/06/25 16:00 06/06/25 16:00
Physical Exam
General: Well Developed and Well Nourished
HEENT: NormoCephalic
Respiratory: Crackles, Chest Tube and Other (cough)
Cardiac: S1/S2
Breast: Deferred by me
GI: Soft
Rectal: Brown
Genito-urinary: Deferred by me
Musculoskeletal: No Edema
Skin: Warm and Dry
Neuro: AO x 3 and No Sensory Deficits
Hematologic/Lymphatic: No Lymphadenopathy
Psych: Calm
Laboratory Results
-
06/06/25 11:57
06/06/25 11:57
Laboratory Results
Total Bilirubin 0.6 mg/dl (0.2-1.3) 06/06/25 11:57
AST 20 U/L (14-36) 06/06/25 11:57
ALT 23 U/L (0-35) 06/06/25 11:57
Alkaline Phosphatase 68 U/L (38-126) 06/06/25 11:57
Data Reviewed
-
Diagnostic Radiology: Image Personally Visualized and interpreted
CT Scan: Image Personally Visualized and interpreted
Old Records: Reviewed
Impression/Plan
-
IMPRESSION:
59 y/o female with PMHx listed above presented with shortness of breathe.
PLAN:
#Pleural effusion
- Monitor CT output
- repeat CXR in AM
#Cough
-start guaifenesin
--- NOTE | 2025-06-06 17:52 | W.PN.UPDATE ---
Update Note
Progress Note Update
- US/fluoro guided placement of 2 right sided chest tubes. 14F pigtail drained placed into posterior effusion and 10F placed into small anterior collection.
- Both effusions appeared loculated/complex on US
- About 100 mL of clear serous fluid drained from posterior chest tube.
- Monitor output overnight. May require some low dose fibrinolytics/pleural lysis but defer to CT surgery regarding further management.
- Pt tolerated well.
[2025-06-06] MEDS: DUONEB INH (18:27)
--- NOTE | 2025-06-06 18:32 | PTCARENOTE ---
Received pt from IR status post thoracentesis and chest tube placement, AAOx3, not in any pain, VSS, NS on the monitor in the 80's. Pt came up with two separate chest tubes with straw drainage in each container. Pt was settled in bed with vitals
started and was able to order dinner before they closed.
[2025-06-06] MEDS: DUONEB 3 ML INH (20:35)
[2025-06-06] MEDS: TYLENOL 650 MG PO (20:38)
[2025-06-06] MEDS: ZOLOFT 100 MG PO (20:38)
[2025-06-06] MEDS: NEURONTIN 100 MG PO ×2 (20:38→23:02)
[2025-06-06] MEDS: ROXICODONE 2.5 MG PO (23:02)
[2025-06-07] MEDS: FLEXERIL 5 MG PO (01:26)
[2025-06-07 04:58] VITALS: BP 104/71
[2025-06-07 05:15] VITALS: BMI 24.9
[2025-06-07] MEDS: TYLENOL 650 MG PO ×3 (05:18→21:09)
[2025-06-07 05:38] LABS: Hematocrit 38.0 % (37.0-47.0); Hemoglobin 12.6 g/dL (12.0-16.0); Mean Corp Hgb Conc. 33.2 g/dL (33.0-37.0); Mean Corpuscular Volume 95.0 fL (81.0-99.0); Platelet Count 411 10^3/uL (130-400); Red Cell Dist. Width 13.3 % (11.5-14.5)
--- NOTE | 2025-06-07 05:53 | PTCARENOTE ---
Pt awake intermittently t/o the night. Pt with complaints of chest tube site discomfort. PRN pain medication administered as ordered. Pt with occasional dry cough. POX 95% on RA. Chest tube output as documented. Dressings intact. Vitals signs
stable. Call ross in reach. Will continue to monitor.
[2025-06-07 06:03] LABS: Blood Urea Nitrogen 11 mg/dl (7-17); Calcium 9.1 mg/dl (8.4-10.2); Carbon Dioxide 31 mmol/L (22-30); Chloride 100 mmol/L (98-107); Estimated Creatinine Clearance 82 ml/min; Glucose 104 mg/dl (70-99); Magnesium 2.4 mg/dl (1.6-2.3); Potassium 4.5 mmol/L (3.5-5.1); Sodium 137 mmol/L (135-145); eGFR > 60.00
[2025-06-07 07:10] VITALS: BP 106/75
[2025-06-07] MEDS: DUONEB 3 ML INH ×4 (07:40→19:24)
[2025-06-07] MEDS: NEURONTIN 100 MG PO ×3 (08:44→21:07)
[2025-06-07] MEDS: CRESTOR 20 MG PO (08:44)
[2025-06-07] MEDS: LASIX 20 MG PO (08:44)
[2025-06-07] MEDS: KCL 10 MEQ PO (08:44)
[2025-06-07] MEDS: TOPROL XL 25 MG PO (08:44)
--- NOTE | 2025-06-07 10:02 | CM ---
Reviewed chart. Met with Mrs. Bishop to review discharge plans. She states prior to admission she resides with her spouse in a one story home with one step. She states prior to admission she was independent with ambulation and adls. She states
she does not have any DME in the home. She states she a prescription plan and uses [facility]. She states her spouse will be home to assist in his care if needed. The discharge plan is to return home with her spouse when medically stable.
[2025-06-07 11:29] VITALS: BP 106/62
[2025-06-07 16:06] VITALS: BP 102/66
[2025-06-07 18:59] VITALS: BP 134/74
--- NOTE | 2025-06-07 19:12 | PTCARENOTE ---
~[id number]: handoff report received from nightswvft RN. Pt AOx4, NSR 70s on tele, SBP 100s, RA satting 94%. Pt states pain is tolerable at this time. R anterior and lateral CTs to -20 sx, no airleak, tidaling or crepitus at this time. Dressings CDI.
Patient ambulated around unit x1 on room air, tolerated well and then returned to suction after. Pt independent in room and OOB in chair. All needs met at this time, call ross within reach
~[id number]: Patient c/o pain, PRN tylenol given per patient request. All needs met at this time, call ross within reach.
~[id number]: Patient ambulate around unit, tolerated well. CTs placed back on suction once returned to room. Family visiting at this time. Pt indpendent in room. All needs me at this time, call ross within reach. [facility].
[2025-06-07] MEDS: ZOLOFT 100 MG PO (21:07)
[2025-06-07 22:39] VITALS: BP 115/72
[2025-06-08 04:25] VITALS: BP 121/74
--- NOTE | 2025-06-08 04:43 | W.PN.CT ---
Today's Communication / Plan
-
Plan:
-No major issues overnight
-C/o upper back pain from chest tubes
-No air leak noted, drained 70/170 (serous) from posterior tube, and 10/10 (serous) from anterior tube
-F/U cxr
-Encourage use IS
-OOB into chair/Ambulate
Assessment / Plan
-
Assessment:
- Moderate Loculated Right plerual effusion: S/P placement of 2 right sided chest tubes. 14F pigtail drained placed into posterior effusion and 10F placed into small anterior collection, by IR (100 ml serous drainage
from the posterior chest tube)
- Pulmonary nodule of the RML concerning for malignancy- S/p Robotic assisted thoracic surgery; Right middle lobectomy; Limited lymph node dissection by Dr. Trammell on 05/31/25 (pathology negative for Malignancy)
- Previous history of aortic valve stenosis, status post SAVR (Inspiris) in [address] Morrison
- Anxiety/depression
- Pneumothorax
- Hyperlipidemia
- Pulmonary nodule concerning for malignancy
- History of breast cancer, status postmastectomy and radiation
Discussed patient care with: Nursing, Respiratory Therapy, Pharmacy and Care Team
Subjective
-
Date of Service: June 08, 2025
Pt c/o right upper back pain from chest tubes, otherwise feels well
Objective Data
-
Lab Results
06/07/25 04:58
06/07/25 04:58
Vital Signs
Vital Signs
Temp Pulse Resp BP Pulse Ox
98.1 F 71 18 134/74 97
06/08/25 04:26 06/08/25 04:26 06/08/25 04:26 06/07/25 18:59 06/08/25 04:26
CT Intake/Output/Weight
06/07/25 06/07/25 06/08/25
06:59 18:59 06:59
Intake Total 400 / 400
Output Total 78 / 255 96 / 96
Balance -78 / -255 -96 / 304 400 / 304
SaO2: 97 (RA)
Physical Exam
-
General: Awake, Oriented and AOx3
Cardiovascular: Regular rate & rhythm
Respiratory: Decreased Breath Sounds (on right, otherwise clear)
Sternum: Stable
Incision: Clean, Dry, Intact and Dressing Intact
Extremities: No Edema
Data Reviewed
-
Lab Results: Results Reviewed
Medications: Active Meds Reviewed
Chest X-Ray: Report Reviewed and Image Reviewed
ECG: Report Reviewed and Image Reviewed
[2025-06-08 06:00] VITALS: BMI 24.9
[2025-06-08] MEDS: TYLENOL 650 MG PO (06:13)
--- NOTE | 2025-06-08 06:17 | PTCARENOTE ---
Pt NSR on monitor, VSS. Anterior and Lateral CT to -20sx. Dsg CDI, no leak. Pt c/o pain 10/21. Tylenol PRN given. Pt ambulates with x 1 assist
[2025-06-08] MEDS: DUONEB 3 ML INH ×3 (07:33→15:31)
[2025-06-08 07:52] VITALS: BP 107/67
[2025-06-08] MEDS: KCL 10 MEQ PO (07:53)
[2025-06-08] MEDS: NEURONTIN 100 MG PO ×2 (07:53→17:21)
[2025-06-08] MEDS: TOPROL XL 25 MG PO (07:53)
[2025-06-08] MEDS: LASIX 20 MG PO (07:53)
[2025-06-08] MEDS: CRESTOR 20 MG PO (07:53)
--- NOTE | 2025-06-08 09:34 | W.PN.UPDATE ---
Update Note
Progress Note Update
Six ML serous drainage in past 24 hours from right anterior pleural drain. Drain removed without difficulty and occlusive dressing applied.
[2025-06-08 11:47] VITALS: BP 102/69
[2025-06-08 12:10] VITALS: BP 102/69
--- NOTE | 2025-06-08 13:03 | PTCARENOTE ---
Pt is AOx3, no complaints of pain or discomfort. Anterior chest tube removed this AM, dressing CDI. Lateral chest tube connected to wall suction. Independent OOB. SR on tele monitor, VSS. Call ross within reach.
--- NOTE | 2025-06-08 13:36 | CM ---
Reviewed chart. Met with Mrs. Bishop to review discharge plans. She states she is feeling a little better, but still with some pain/discomfort. Prior to admission she resides with her spouse in a one story home with one step. Prior to admission
she was independent with ambulation and adls. She does not have any DME in the home. Patel prescription plan and uses [facility]. Her spouse will be home to assist in his care if needed. Will need to see her current functional level to see
if she will have any skilled care needs. Will watch for [facility] Needs. The discharge plan is to return home with her spouse when medically stable.
[2025-06-08 15:35] VITALS: BP 114/67
--- NOTE | 2025-06-08 17:04 | W.DCSUMMARY ---
Discharge Summary
Discharge Data
Date of Admission: 06/06/25
Date of Discharge: 06/08/25
-
Pending Results: No
Hospital Course
Primary care physician: Charisse Preciado
Outpatient mitigation supervisor: Segundo Malhotra
Inpatient consultants: Interventional radiology
Procedures:
1. R anterior and posterior pigtail chest drains placed by Interventional radiology
Primary Diagnosis:
1. Loculated right pleural effusion
Secondary Diagnoses:
1. Pulmonary nodule s/p Right middle lobectomy; Limited lymph node dissection by Dr. Trammell on 05/31/25 (pathology negative for Malignancy)
2. Hx aortic valve stenosis, status post SAVR (Inspiris) in [address] Morrison
3. Anxiety/depression
4. Hx Pneumothorax
5. Hyperlipidemia
6. Hx right breast cancer, status postmastectomy and radiation
HPI: 59-year-old female known to CT service from recent right middle lobe lobectomy on 05/31/2025, was readmitted on 06/06/25 for increasing shortness of breath and new moderate loculated right pleural effusion on chest x-ray.
Hospital course: Patient was taken to interventional radiology and underwent US/fluoro guided placement of 2 right sided chest tubes. 14F pigtail drained placed into posterior effusion and 10F placed into small anterior collection. Drains remained
in place until 06/08/2025. Right anterior chest tube was removed in the morning. And right posterior chest tube drained only 30 cc in the afternoon and was removed. Occlusive dressings remain intact x 24 hours. Patient may shower tonight. Right
lateral suture remains in place and will be assessed for readiness of removal at follow-up CT appointment. Follow-up chest x-ray was without pneumothorax. Patient was discharged to home with follow-up appointment on 06/13/[address] Trammell at 2:15
PM. A prescription for PA and lateral chest x-ray was given to the patient and instructed to obtain on Friday prior to her scheduled appointment.
Home medication changes:
none
Discharge Plan
-
Patient Disposition: Home (Routine Discharge)
Discharge Diagnosis/Procedures: Interventional radiology chest tubes for loculated right pleural effusion (06/06/25)
Diet: No restrictions
Activity: No strenuous activity
Driving Restrictions: As prior to admission
Bathing Restrictions: OK to Shower
Referrals:
Hetal Preciado MD [Family Provider, Family Practice]
Tacos Trammell MD [Active, Cardiac Surgery] - 06/13/25 2:15 pm
Referral Note: F/U after chest tube removal
Prescriptions:
Continued
sertraline [Zoloft] 100 mg Tablet
100 mg PO HS
clobetasol 0.05 % Cream
1 applic TOPICAL BID PRN (Reason: eczema-ankles)
rosuvastatin 20 mg Tablet
20 mg PO HS
metoprolol succinate 25 mg tablet extended release 24 hr
25 mg PO DAILY
cyclobenzaprine 10 mg Tablet
5 mg PO Q8HPRN PRN (Reason: muscle spasm) Qty: 30 0RF
acetaminophen 325 mg Tablet
650 mg PO Q4HPRN PRN (Reason: mild pain,headache,temp >101F ) Qty: 0 0RF
gabapentin 100 mg Capsule
100 mg PO TID Qty: 90 0RF
oxycodone 5 mg Tablet
2.5 mg PO Q6HPRN PRN (Reason: mild pain) Qty: 20 0RF
furosemide [Lasix] 20 mg tablet
20 mg PO DAILY Qty: 7 0RF
Rx Instructions:
Take daily for 7 days, then stop- last dose 06/07
potassium chloride 10 mEq capsule, extended release
10 meq PO DAILY Qty: 7 0RF
Rx Instructions:
Take daily for 7 days (with furosemide), then stop- last dose 06/07
ergocalciferol (vitamin D2) 1,250 mcg (50,000 unit) Capsule
1,250 mcg PO HERNÁNDEZ@0800
Discontinued
Cbd
1 dose sublingual DAILYPRN PRN (Reason: severe Anxiety)
Rx Instructions:
06/06/25 Last dose was several months ago.
Discharge Orders:
Discharge Patient (As Directed); Ordered 06/08/25
Ordered By: Macy Lozada
Care Plan Goals
Care Plan Goals:
Problem: Readiness for enhanced knowledge related to diagnosis and treatment plan
Goal: Understand your diagnosis and treatment plan needs, including medications if applicable.
Instructions: Know your diagnosis, underlying causes and treatment plan options, including medications if applicable. Consult with your health care team to learn about your diagnosis and treatment plan, including medications if applicable.
Discharge Date and Time
Print Language: ERITREAN
== END 2025-06-08 18:46 | disposition home or self-care (01) ==
LOC: IVU 15:03
PROVIDERS: Clinical Nurse Specialist Acute Care; Physician Assistant; ADMITTING PHYSICIAN Thoracic Surgery (Cardiothoracic Vascular Surgery); EMERGENCY PHYSICIAN Emergency Medicine; FAMILY PHYSICIAN Family Medicine
DX: J95.89 Other postprocedural complications and disorders of respiratory system, not elsewhere classified (principal); J90 Pleural effusion, not elsewhere classified; J98.11 Atelectasis; R06.02 Shortness of breath; R05.9 Cough, unspecified; I10 Essential (primary) hypertension; E78.5 Hyperlipidemia, unspecified; R94.31 Abnormal electrocardiogram [ECG] [EKG]; M54.6 Pain in thoracic spine; Y83.8 Other surgical procedures as the cause of abnormal reaction of the patient, or of later complication, without mention of misadventure at the time of the procedure; R53.83 Other fatigue; C34.91 Malignant neoplasm of unspecified part of right bronchus or lung; F32.A Depression, unspecified; F41.9 Anxiety disorder, unspecified; J30.81 Allergic rhinitis due to animal (cat) (dog) hair and dander; J30.1 Allergic rhinitis due to pollen; Z90.2 Acquired absence of lung [part of]; Z91.0120 Allergy to eggs, unspecified; Z87.891 Personal history of nicotine dependence; Z92.3 Personal history of irradiation; Z95.2 Presence of prosthetic heart valve; Z85.3 Personal history of malignant neoplasm of breast; Z11.52 Encounter for screening for COVID-19
CPT/HCPCS: 32557; 71045; 71046; 71275; 80048; 80053; 83735; 85025; 85027; 87015; 87070; 87205; 87502; 87811; 93005; 94640; 96365; 99152; 99153; 99285; C1729; C1769; G0378; Q9967

== ENCOUNTER → 2025-06-13 09:21 | Outpatient (REF) | payer OTHER, SELFPAY | LOC: RAD 09:21 | PROVIDERS: ATTENDING PHYSICIAN Nurse Practitioner; FAMILY PHYSICIAN Family Medicine | DX: J90 Pleural effusion, not elsewhere classified (principal) | CPT/HCPCS: 71046 ==

== ENCOUNTER → 2025-06-14 07:44 | Outpatient (REF) | payer OTHER, SELFPAY ==
[2025-06-14 08:12] VITALS: BP 129/86; BP_SYST 65
== END ==
LOC: RADI 07:44
PROVIDERS: ATTENDING PHYSICIAN Thoracic Surgery (Cardiothoracic Vascular Surgery); FAMILY PHYSICIAN Family Medicine
DX: J90 Pleural effusion, not elsewhere classified (principal); Z53.8 Procedure and treatment not carried out for other reasons
CPT/HCPCS: 76604